=== PATIENT | female | born 1965 | race Caucasian/White ===

== ENCOUNTER 2024-08-19 09:04 | Day surgery (SDC) | payer OTHER, SELFPAY ==
[2024-08-19] VITALS (14 sets, daily range): BP systolic 100–118; BP diastolic 55–70; PULSE 64–98; RESP 16; TEMP 36.1–36.9; O2SAT 89–99; BMI 22.4
[2024-08-19] MEDS: Lactated Ringers 1,000 ML 15 ML IV (09:31)
--- NOTE | 2024-08-19 09:57 | PCM.PRE.AN2 ---
ASA Classification* ASA Classification ASA Classification: 2 Assessment & Plan Anesthesia* Anesthesia Assessment Anesthesia Assessment: Discussed sedation and/or anesthesia options, risks, benefits, and alternatives with patient/parents/legal guardian/POA. Questions invited. The patient/parents/legal guardian/POA seems to understand and agrees to proceed with anesthesia plan. Reviewed the physical assessment, medical history, allergy history and patient home medications list prior to surgery/procedure/anesthetic and documented any changes. Performed airway and anesthesia risk assessments. 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 When Was Last Pacemaker Check QUESTION #4 FULL TEXT: You/Your Family Experience fever (hyperthermia) with Anesthesia Last Oral Intake Last Oral intake: Last Oral Intake NPO since 16:00 08/19/24 09:27 Meds taken in AM with sips of Yes 08/19/24 09:27 water? Meds patient instructed to ZOLOFT 08/19/24 09:27 take am of surgery PONV PONV - licensing registration examiner: PONV - licensing registration examiner Female Yes 07/31/24 15:22 HX of Motion Sickness No 07/31/24 15:22 HX of N/V After Surgery No 07/31/24 15:22 Non-Smoker Yes 07/31/24 15:22 Duration of Surgery greater Yes 07/31/24 15:22 than 60 minutes Number of Risk Factors 3 07/31/24 15:22 PONV Score Moderate Risk 07/31/24 15:22 Height & Weight Height & Weight: Anesthesia: Height & Weight Height 5 ft 1 in 08/19/24 09:27 Weight: 54 kg 08/19/24 09:27 Body Mass Index (BMI) 22.4 08/19/24 09:27 Respiratory Assessment Respiratory Assessment - licensing registration examiner: Respiratory Tract Infection Hx - licensing registration examiner Hx Respiratory Tract Infection No 07/31/24 15:22 STOP Sleep Apnea STOP Sleep Apnea - licensing registration examiner: STOP Sleep Apnea - licensing registration examiner Hx Hypertension No 07/31/24 15:22 Hx Sleep Apnea No 07/31/24 15:22 CPAP BIPAP Do you snore loudly (louder No 07/31/24 15:22 than talking or can be heard Do you often feel tired/ No 07/31/24 15:22 fatigued/ sleepy during daytime? Has anyone observed you stop No 07/31/24 15:22 breathing during sleep? STOP Results Negative 07/31/24 15:22 QUESTION #5 FULL TEXT : Do you snore loudly (louder than talking or can be heard through closed doors)? 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 Specify any problems Hx of Preganancy in last 3 No 07/31/24 15:22 Months Nurse Filling Out Transfusion DSCHRIBER 07/31/24 15:22 & Questions: Date: 07/31/24 07/31/24 15:22 Time: 15:23 07/31/24 15:22 Patient unable to answer at this time (ie. confused, unrespo /Reproduction History /Reproductive History - licensing registration examiner: /Reproductive Hx- licensing registration examiner Hx Now No 07/31/24 15:22 Gestational Age (in weeks): EDC: Hx Hx Para Hx Section SAB No 07/31/24 15:22 Active Medications Active Medications: Current Medications Generic Name Dose Route Start Last Admin Trade Name Freq PRN Reason Stop Dose Admin Cefazolin Sodium 2 gm/ N/A 20 mls @ 400 mls/hr 08/19/24 10:50 IV 08/19/24 10:52 PREOP ONE Lactated Ringer's 1,000 mls @ 15 mls/hr 08/19/24 09:30 08/19/24 09:31 IV 08/24/24 22:49 15 mls/hr .Q48H JUAN Administration Protocol PFSH Medical History Wears glasses Wears dentures Alcohol use Back pain Restless legs Former smoker History of stress test Forearm injury Benign pigmented skin lesion IBS (irritable bowel syndrome) Hypercholesterolemia Depression Anxiety Asthma Arthritis Environmental allergies Home Medications ?Medication ?Instructions ?Recorded ?Last Taken ?Type atorvastatin 20 mg tablet 20 mg PO QDAY 07/03/24 08/18/24 History sertraline 100 mg tablet 200 mg PO QDAY 07/03/24 08/19/24 History albuterol sulfate 90 mcg/actuation 1 inh inhalation Q6H PRN PRN 07/31/24 Unknown History breath activated powder inhaler shortness of breath trazodone 50 mg tablet 50 mg PO QHS PRN PRN insomnia 07/31/24 Unknown History Allergy/AdvReac Type Severity Reaction Status Date / Time strawberry (strawberries) Allergy Severe Anaphylaxis Verified 08/19/24 09:25 Seasonal Allergies: Uncoded Allergy Sinus Verified 08/19/24 09:25 (environmental) congestion Family History Father Diabetes Hypertension Other Anxiety Arthritis Asthma Depression Surgical History Hx of colonoscopy Hx of inguinal hernia repair History of surgery on arm Social History Smoking Status: Former smoker alcohol intake: never substance use type: does not use additional social history: No aspirin or ibuprofen use. Review of Systems (Anesthesia) ROS Narrative System reviewed and no additional complaints, except as documented.
--- NOTE | 2024-08-19 11:39 | PCM.HP.STD ---
HPI - General HPI Narrative Natalia Foss is a delightful 58-year-old female with past medical history of anxiety and depression and high cholesterol who presents today for evaluation regarding periorbital rejuvenation. She has been referred to me by the dermatology team at [facility] (Dr. Reis) who recommended blepharoplasty as the patient has significant visual field obstruction from overhanging skin. Patient reports that is hard to see at times. No headaches. She is agreeable to operative intervention. She quit smoking 2 years ago (no tobacco products). The patient reports that they do not have any personal or family history of bleeding or clotting disorders. No history of thyroid eye disease or any other eye diseases. No history of any dry eyes Current encounter, 31 July 2024: Doing well overall and is excited about her upcoming surgery. She is going to be scheduled on 17 August. I talked her extensively about what to expect from the surgery today, as did by nurse practitioner. All her questions were answered. Reports no changes in health status and she has been cleared by her primary care doctor for surgery. Insurance has approved brow lift and blepharoplasty. Current Encounter (DATE OF SURGERY H&P UPDATE): I saw and examined the patient this morning in pre-operative holding. We discussed risks and benefits of today's surgery and they would like to proceed. NO CHANGE in health history since last seen and evaluated. Ready to proceed with surgery. [facility] Medical History Wears glasses Wears dentures Alcohol use Back pain Restless legs Former smoker History of stress test Forearm injury Benign pigmented skin lesion IBS (irritable bowel syndrome) Hypercholesterolemia Depression Anxiety Asthma Arthritis Environmental allergies Home Medications ?Medication ?Instructions ?Recorded ?Last Taken ?Type atorvastatin 20 mg tablet 20 mg PO QDAY 07/03/24 08/18/24 History sertraline 100 mg tablet 200 mg PO QDAY 07/03/24 08/19/24 History albuterol sulfate 90 mcg/actuation 1 inh inhalation Q6H PRN PRN 07/31/24 Unknown History breath activated powder inhaler shortness of breath trazodone 50 mg tablet 50 mg PO QHS PRN PRN insomnia 07/31/24 Unknown History carboxymethylcellulose sodium 1 % 2 drp EACH EYE BID PRN dry eye(s) 11/20/24 Unknown Rx eye drops (Artificial Tears #15 mL (carboxymethylcellulose)) cephalexin 500 mg capsule 500 mg PO Q8H 5 days #15 caps 08/19/24 Unknown Rx ondansetron 4 mg disintegrating 4 mg PO Q8H PRN nausea and 08/19/24 Unknown Rx tablet vomiting #10 tabs oxycodone 5 mg tablet 5 mg PO Q12H PRN pain 7 days #14 08/19/24 Unknown Rx tabs Allergy/AdvReac Type Severity Reaction Status Date / Time strawberry (strawberries) Allergy Severe Anaphylaxis Verified 08/19/24 09:25 Seasonal Allergies: Uncoded Allergy Sinus Verified 08/19/24 09:25 (environmental) congestion Family History Father Diabetes Hypertension Other Anxiety Arthritis Asthma Depression Surgical History Hx of colonoscopy Hx of inguinal hernia repair History of surgery on arm Social History Smoking Status: Former smoker alcohol intake: never substance use type: does not use additional social history: No aspirin or ibuprofen use. Vital Signs Vital Signs Vital Signs: 08/19/24 09:27 08/19/24 09:27 08/19/24 09:57 Temperature 98.5 F 98.5 F Temperature Source Temporal Pulse Rate 64 64 Respiratory Rate 16 16 Respiratory Pattern Normal Blood Pressure 116/69 116/69 Blood Pressure Mean 84 Blood Pressure Source Monitor Blood Pressure Position Semi-Fowlers Blood Pressure Location Left Arm Pulse Ox 99 99 Oxygen Delivery Method Room Air Weight Weight: 119 lb 0.794 oz Body Mass Index (BMI) 22.4 Physical Exam Narrative Pupils: PERRL EOM: EOM intact bilaterally Forehead: Chronic frontalis use to overcome dermatochalasis/brow ptosis. I had her close her eyes, relax her forehead, and then open her eyes again and there was significant visual field obstruction. Eyebrows: Ptotic and below orbital rim bilaterally Eyelids: MRD 1 was 4 mm Good levator function (approximately 14 mm) No lagophthalmos Upper lid dermatochalasis bilaterally, obstructing vertical gaze bilaterally secondary to the skin. The skin is hanging over his eyelashes and the lateral portions of her lid margin. Assessment & Plan Assessment/Plan (1) Brow ptosis, bilateral: (2) Dermatochalasis of both upper eyelids: PLAN: Plan Patient's eyebrows are below the orbital rim and contributing significantly to the overhanging skin by placing pressure on the upper eyelid skin and causing it to fall over the upper eyelid margin I talked the patient extensively about upper eyelid blepharoplasty, the incisions, and the risks. We talked about the risks of lagophthalmos, damage to surrounding structures, bleeding, need for repeat operations including reexcision of excess skin, failure to obtain the desired result, infection, wound problems, poor scarring, and dry eyes/chemosis. I talked her extensively about brow lift, and brow lift type/incisions. She would be a candidate for pretrichial brow lift or endoscopic brow lift, but since she has a longer forehead we decided that a pretrichial brow lift would be more appropriate so as to not displace her hairline too far posteriorly. We also discussed the risks of this including numbness on the forehead/scalp, damage to the frontal branch of the facial nerve, failure to obtain the desired result including residual brow ptosis or asymmetry, bleeding, infection, and poor scarring and wound healing problems. We discussed extensively the scar placement. Plan for follow-up in 3 weeks after visual field testing obtained. Will plan to submit for insurance with visual field test. Plan for surgery would be bilateral upper lid blepharoplasty with bilateral coronal brow lift (neither of which are cosmetic and are functional and medically necessary). CPT codes for insurance prior authorization are as follows: Blepharoplasty 46477 (50 modifier), Brow Lift 67837 (50 modifier) Plan I talked the patient extensively about the risks of surgery, including bleeding (retrobulbar hematoma with need for lateral canthotomy and then subsequent repair), infection, damage to surrounding structures, surgical site dehiscence and wound formation, need for wound care, need for repeat operations, failure to obtain the desired result, DVT/PE (Caprini is 3), and the risks of anesthesia including . The benefits and alternatives of this surgery were also discussed. All of their questions were answered, and they agreed to proceed with surgery. In addition to the above, I reiterated especially risk of brow and eyelid asymmetry, excess skin remaining in the upper eyelid, numbness on the forehead and scalp from the brow lift, and damage to the frontal branch of the facial nerve. I also talked to her about the risks of lagophthalmos. I talked about the risk of corneal abrasion. All her questions were answered and we talked extensively about the postoperative protocol and what to expect. I also talked her about the risks of poor scarring. We talked about hair loss and change of position of the hair line. I showed her the incisions. She was in agreement. I talked her about the placement of a scar for a coronal brow lift, and she was accepting of the scar and would like to proceed. Plan for surgery is bilateral upper lid blepharoplasty with pretrichial/coronal brow lift
[2024-08-19] MEDS: Cefazolin 2 GM in Syringe IV (11:45)
[2024-08-19] MEDS: Povidone Iodine 30 ML Opthalmic Sol 1 DRP (12:15)
[2024-08-19] MEDS: Bupiv/Epi 0.25% 30 ML Vial (12:17)
[2024-08-19] MEDS: Tetracaine 0.5% Ophthalmic Bottle 1 DRP (12:17)
[2024-08-19] MEDS: Lidocaine 1% /Epi 1:100 (20ml) 20 ML Vial (12:17)
[2024-08-19] MEDS: Bacitracin 500 UNITS/GM PACKET (12:39)
[2024-08-19] MEDS: Erythromycin Base 1 OPTH.TUBE 1 APPLIC (14:16)
--- NOTE | 2024-08-19 15:12 | PCM.POST.ANE ---
Anesthesia: Postop Eval I Current Vital Signs Temperature: 97.9 F Pulse Rate: 80 Blood Pressure: 103/61 Respiratory Rate: 16 Pulse Ox: 98 Oxygen Delivery Method: Room Air Assessment Airway patent: Yes Spontaneous unlabored respirations: Yes Mental status: Awake and Calm nausea: No Vomiting: No Anesthesia Complication: No Fluid Hydration Crystalloid volume administer (ml): 1,000 Total IV fluid infused: 1,000 Progress Note Anesthesia document: Postop Eval 1 completed: Yes
--- NOTE | 2024-08-19 16:15 | POSTOPAN2_ITS ---
Anesthesia Postop Eval I Sum Postop Eval Completion status Anesthesia document: Postop Eval 1 completed: Yes Anesthesia Postop Eval I Summary Anesthesia Postop Eval I Summary: Anesthesia Postop Eval I: Assessment Summary Airway patent Yes 08/19/24 15:13 [email or web address] [email or web address] Spontaneous unlabored Yes 08/19/24 15:13 TENNIS [email or web address] respirations Mental status Awake,Calm 08/19/24 15:13 TENNIS [email or web address] nausea No 08/19/24 15:13 TENNIS PLAYER.[email or web address] Vomiting No 08/19/24 15:13 TENNIS PLAYER.[email or web address] Anesthesia Postop Eval I: Fluid Summary Crystalloid volume administer 1,000 08/19/24 15:13 [email or web address] [email or web address] (ml) Colloids volume administered ( ml) Blood Product volume administered (ml) Total IV fluid infused 1,000 08/19/24 15:13 TENNIS PLAYER.[email or web address] Anesthesia Postop Eval I: Summary Notes Anesthesia Complication No 08/19/24 15:13 TENNIS [email or web address] Anesthesia Complication Comment: Post-operative progress note Anesthesia: Postop Eval II Evaluation Mental status: Awake and Calm Pain Level: 1 nausea: No Vomiting: No Complications Anesthesia Complication: No
--- NOTE | 2024-08-19 16:15 | PCM.POSTANE2 ---
Anesthesia Postop Eval I Sum Postop Eval Completion status Anesthesia document: Postop Eval 1 completed: Yes Anesthesia Postop Eval I Summary Anesthesia Postop Eval I Summary: Anesthesia Postop Eval I: Assessment Summary Airway patent Yes 08/19/24 15:13 SHARED SERVICES AND OUTSOURCING MANAGER.[email or web address] Spontaneous unlabored Yes 08/19/24 15:13 SHARED SERVICES AND OUTSOURCING MANAGER.OMARIOBY respirations Mental status Awake,Calm 08/19/24 15:13 SHARED SERVICES AND OUTSOURCING MANAGER.[email or web address] nausea No 08/19/24 15:13 SHARED SERVICES AND OUTSOURCING MANAGER.SKOBY Vomiting No 08/19/24 15:13 SHARED SERVICES AND OUTSOURCING MANAGER.[email or web address] Anesthesia Postop Eval I: Fluid Summary Crystalloid volume administer 1,000 08/19/24 15:13 SHARED SERVICES AND OUTSOURCING MANAGER.SKOBY (ml) Colloids volume administered ( ml) Blood Product volume administered (ml) Total IV fluid infused 1,000 08/19/24 15:13 SHARED SERVICES AND OUTSOURCING MANAGER.OMARIOBRitika Anesthesia Postop Eval I: Summary Notes Anesthesia Complication No 08/19/24 15:13 SHARED SERVICES AND OUTSOURCING MANAGER.[email or web address] Anesthesia Complication Comment: Post-operative progress note Anesthesia: Postop Eval II Evaluation Mental status: Awake and Calm Pain Level: 1 nausea: No Vomiting: No Complications Anesthesia Complication: No
--- NOTE | 2024-08-19 16:19 | OP.PCM_ITS ---
Operative Report (Standard) Operative Information Surgery/Procedure Performed: 1) Bilateral Brow Lift (coronal), CPT 61860 (50 modifier) 2) Bilateral Upper Blepharoplasty (skin only), CPT 87296 (50 modifier) Surgeon: Jose Martin Paula Date of Procedure: 08/19/24 Procedure Start Time: 12:20 Procedure Stop Time: 14:57 Pre-Operative Diagnosis: Brow ptosis and dermatochalasis bilaterally Post-Operative Diagnosis: same Select all DRAINS/GRAFTS/IMPLANTS that apply: None Type of Anesthesia: General/Supplemental (40 cc of a 50/50 mixture of 1% lidocaine with 1:200,000 epinephrine and 0.25% Marcaine with 1:200,000 epinephrine ) Estimated Blood Loss: minimal Fluids Replaced: 1 liter LR Specimen collected: No Description of surgery: Indications: Natalia Foss is a delightful 58-year-old female who presents today for brow lift and blepharoplasty. She understands the risks, benefits, and alternatives to the procedures. I marked her in preoperative holding, and she was accepting of the claire/plan for incisions and change in hair line. Understood anticipated scalp numbness as well as risks of forehead numbness and neurapraxia or permanent damage to the frontal branch of the facial nerve. Also understood risks of lagophthalmos and/or need for revision surgery. Procedure details: The patient was taken back to the operating room where she was administered general anesthesia and prepped and draped in sterile fashion. Dilute Betadine was used for the prep (ophthalmic Betadine). Care was taken to protect the eyes with scleral jj and eye lubricant. Local was injected along the scalp/forehead markings for the planned incisions for the pretrichial/coronal brow lift and it was given time to take effect. All proper timeouts were performed. A 15 blade scalpel was used to incise along the hairline medially and into the scalp laterally. A Bovie was then used to dissect carefully through the subcutaneous tissue and the galea into a subgaleal plane. Centrally the dissection was carried out along the forehead in a subgaleal plane until 2 cm above the orbital rim where the plane was transitioned into a subperiosteal plane where the periosteum was carefully elevated off of the forehead and the orbital rim with the periosteal elevator with care taken to preserve the supratrochlear and supraorbital nerves. Laterally the incision was taken down through the temporoparietal fascia and along the deep temporal fascia to dissect caudally with care taken to stay in this deep plane to prevent injury to the frontal branch of the facial nerve. The temporal septum/temporal ligamentous adhesion was then carefully elevated with a periosteal elevator to connect the deep temporal fascial plane laterally to a subperiosteal plane on the forehead, again with care taken to stay deep to the facial nerve. Hemostasis was obtained with careful Bovie electrocautery and irrigation. We then sat the patient up. The release of these brow attachments (septum, zone of adhesion, and supraorbital rim) demonstrated significant brow laxity/movement and the skin and scalp was then tailor tacked back into a cephalad position by darting along the flap and careful examination how much to safely resect. With approximately 1.3 cm of skin and scalp resection, the brow was elevated symmetrically into a good position above the orbital rim. The brow position was then also checked by considering a theoretical oval formed by the eyebrow above and the nasojugal fold below the globe, with the pupil at its equator. The deep layer of galea was then closed with 3-0 PDS deep sutures followed by some 4-0 Vicryl sutures. Renetta were placed in the scalp area laterally and 6-0 Prolene vertical mattress sutures were placed in the pretrichial areas of the incision. I then considered a blepharoplasty; this was determined to be safe, as there was still some excess upper eyelid skin following the brow lift that could be safely resected based on the pinch test. I adjusted my upper eric as needed, keeping the lower eyelid crease eric the same (1 cm above the eyelid margin). The area was injected with local, which was given time to take effect. I think excised the excess skin with a 15 blade scalpel (skin only). There was 22 mm of skin left between the eyelid margin and the brow. Hemostasis was obtained with Bovie electrocautery. The same procedure was performed on the contralateral side. The eyelids were then closed with a running 6-0 Prolene suture (tails were taped medially and laterally). The patient tolerated the procedure well. The scleral jj were removed. Her hair was washed and a final block was performed along the incision line with local. Bacitracin was applied along the incision line. A Kerlix and Coban wrap was then applied to the head/forehead. She was awakened and taken the PACU in stable condition. Surgical Findings: Excess upper eyelid skin after brow lift, requiring blepharoplasty. 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
[2024-08-19] MEDS: oxyCODONE 5 MG Tablet PO (17:51)
== END 2024-08-19 18:49 | disposition home or self-care (01) ==
LOC: SDC 09:09 → AC 09:11
PROVIDERS: PCP Family Medicine; Referring Provider Surgery Plastic and Reconstructive Surgery; Visit Provider Surgery Plastic and Reconstructive Surgery
PROC: (CPT 67900; principal; 2024-08-19 10:40)
DX: H57.813 Brow ptosis, bilateral (principal); H02.831 Dermatochalasis of right upper eyelid; H02.834 Dermatochalasis of left upper eyelid; H02.31 Blepharochalasis right upper eyelid; H02.34 Blepharochalasis left upper eyelid; H53.40 Unspecified visual field defects; E78.00 Pure hypercholesterolemia, unspecified; F32.A Depression, unspecified; F41.9 Anxiety disorder, unspecified; Z79.899 Other long term (current) drug therapy; Z87.891 Personal history of nicotine dependence
CPT/HCPCS: 67900; 15822; 00103; J7120; J2405